=== PATIENT | male | born 2000 | race Caucasian/White ===

== ENCOUNTER 2020-06-30 10:38 | Emergency (ER) | payer OTHER ==
[~2020-06-30] VITALS: Ht 193 cm; Wt 85.3 kg
== END 2020-06-30 11:15 | disposition home or self-care (01) ==
LOC: ER 10:38
DX: S51.812D Laceration without foreign body of left forearm, subsequent encounter (principal); F17.210 Nicotine dependence, cigarettes, uncomplicated; X58.XXXD Exposure to other specified factors, subsequent encounter
CPT/HCPCS: 99281